=== PATIENT | male | born 1955 | race Caucasian/White ===

== ENCOUNTER → 2019-03-09 | Outpatient (CLI) | payer BC ==
--- NOTE | 2019-03-09 11:35 | KCIC ---
EXAM: Left lower extremity venous reflux exam. HISTORY: Swelling. TECHNIQUE: [place]as scale and color Doppler sonographic evaluation of the left lower extremity veins with spectral waveform analysis was performed. FINDINGS: There is no evidence of venous reflux involving the left greater or lesser saphenous veins. The left greater saphenous vein measures 6.4 mm within the proximal thigh, 3.8 mm within the mid thigh, 2.4 mm within the distal thigh, 3.2 mm within the proximal calf, 2.1 mm within the mid calf and 2.1 mm within the distal calf. The left lesser saphenous vein measures 3.2 mm within the proximal calf, 2.1 mm within the mid calf and 2.1 mm within the distal calf. IMPRESSION: No sonographic evidence of left greater or lesser saphenous venous reflux. Electronically signed by: Astrid Alcala MD (03/09/2019 11:31 AM) [id number]
== END | disposition home or self-care (01) ==
LOC: KCIC US 09:59
PROVIDERS: ATTEND Internal Medicine
DX: M79.605 Pain in left leg (principal); M79.89 Other specified soft tissue disorders
CPT/HCPCS: 93971